=== PATIENT | female | born 1960 | race Caucasian/White ===

== ENCOUNTER → 2016-11-17 | Outpatient (CLI) | payer BC ==
--- NOTE | 2016-11-17 13:18 | US ---
EXAMINATION TYPE: US pelvic complete DATE OF EXAM: 11/17/2016 COMPARISON: NONE CLINICAL HISTORY: R19.00 PELVIC MASS. Left sided fullness TECHNIQUE: TA Date of LMP: 10 years ago EXAM MEASUREMENTS: Uterus: 5.9 x 3.9 x 2.8cm Endometrial Stripe: 0.3cm Right Ovary: 2.6 x 1.2 x 1.3cm Left Ovary: 1.6 x 1.2 x 0.9cm 1. Uterus: Anteverted wnl 2. Endometrium: wnl 3. Right Ovary: wnl 4. Left Ovary: wnl 5. Bilateral Adnexa: left adnexa has peristalsing bowel noted more so then the right 6. Posterior cul-de-sac: wnl IMPRESSION: 1. No suspicious pelvic abnormality by ultrasound
--- NOTE | 2016-11-17 17:46 | WWHP ---
CHIEF COMPLAINT: The patient is here for her routine gynecologic exam and mammogram. HPI: This is a 56-year-old G1, P1 with an LMP of 2008. The patient is without gynecologic complaints and denies any postmenopausal bleeding. Her last pelvic exam was about 2009 and her last mammogram was in 2012. Past medical history is unremarkable. MEDICATIONS: Multivitamin daily, vitamin D supplement daily. ALLERGIES: No known drug allergies. PAST SURGICAL HISTORY: Bone spurs removed when she was in the fifth grade, colonoscopy 2008. PAST OB HISTORY: One vaginal delivery. 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 She was told she had HPV and denies any other STDs in the past. SOCIAL HISTORY: She denies tobacco and drug use. She has about 2 alcoholic drinks per week. She has been since 1998 and this was her second marriage. 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 FAMILY HISTORY: Mother had bladder cancer. Maternal aunt and maternal uncle had breast cancer. Father had COPD and [place]. REVIEW OF SYSTEMS: She has lost about 10 pounds over the last year with diet and exercise. She denies respiratory, cardiac, or GI problems. : She has had some occasional incontinence and does wear protection. PHYSICAL EXAM: Blood pressure 129/75. Height 5 feet 5 inches. Weight 137 pounds. Temperature 96.6, pulse 72. This a well-developed, malnourished white female who is alert and oriented x3 in no acute distress. HEENT is within normal limits. NECK: Supple without mass or thyromegaly. CHEST AND LUNGS: Clear to auscultation. HEART: Regular rate and rhythm. Breasts are without mass or discharge. Axillary exam is negative for adenopathy. BACK: Negative for CVA tenderness. ABDOMEN: Soft, nontender, without palpable masses. PELVIC EXAM: External genitalia reveals mild to moderate atrophy without lesions. Cervix and vagina reveal mild atrophy without lesions and there is no evidence of prolapse. The uterus is midposition, nongravid size and nontender. There is palpable mass at the lateral aspect of the left adnexa which measures approximately 2 cm and is nontender. This initially felt like colonic stool. There are no other palpable adnexal masses or tenderness. Rectovaginal exam is negative for rectal mass and the lateral left adnexal masses again was palpated and this could not be confirmed to be stool with the rectal exam. There is no tenderness and this was negative for occult blood. EXTREMITIES: Nontender. IMPRESSION: A 56-year-old menopausal female with palpable lateral adnexal masses on the left side. Differential diagnosis will include colonic stool, but also could possibly be a palpable ovary in menopause. PLAN: 1. Pap smear was performed. 2. Self breast examination was discussed. 3. Mammogram will be done today. 4. Pelvic ultrasound will be scheduled to further evaluate the left adnexal mass. 5. Osteoporosis prevention was discussed. 6. We will plan doing bone density testing at age 58. 7. She will also return in one year.
--- NOTE | 2016-11-19 10:54 | MM ---
Reason for exam: screening (asymptomatic). Last mammogram was performed 4 years and 3 months ago. History: Patient is postmenopausal and had first child at age 31. Family history of breast cancer in aunt at age 60. Physical Findings: A clinical breast exam by your physician is recommended on an annual basis and results should be correlated with mammographic findings. MG Screening Mammo w CAD Bilateral CC and MLO view(s) were taken. Prior study comparison: August 23, 2012, bilateral digital screening mammo w/CAD. The breast tissue is heterogeneously dense. This may lower the sensitivity of mammography. No significant changes when compared with prior studies. ASSESSMENT: Benign, BI-RAD 2 RECOMMENDATION: Routine screening mammogram of both breasts in 1 year.
== END ==
LOC: WWCWWP 07:52
PROVIDERS: ATTEND Obstetrics & Gynecology
DX: Z12.31 Encounter for screening mammogram for malignant neoplasm of breast (principal); R19.00 Intra-abdominal and pelvic swelling, mass and lump, unspecified site
CPT/HCPCS: 76856; G0202

== ENCOUNTER → 2018-02-01 | Outpatient (CLI) | payer BC ==
[2018-02-01 14:31] VITALS: BP 144/84; PULSE 80; RESP 18; TEMP 98.3; BMI 22.9
--- NOTE | 2018-02-01 15:02 | P.HPOB ---
History of Present Illness H&P Date: 02/01/18 Chief Complaint: The patient is here for her routine gynecologic exam and mammogram. This is a 58-year-old with an LMP of 2008. The patient is without gynecologic complaints and denies any postmenopausal bleeding. Review of Systems The patient's weight has been stable over the last year. She denies cardiac or G.I. problems. Respiratory: she is getting over cold. 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 She has no other history of STDs in the past. History of Any Multi-Drug Resistant Organisms: None Reported Additional Past Surgical History / Comment(s): bone spurs removed, feet. Colonoscopy 2008. Past Anesthesia/Blood Transfusion Reactions: No Reported Reaction Past Psychological History: No Psychological Hx Reported Smoking Status: Former smoker Past Alcohol Use History: Occasional (3 per week) Past Drug Use History: None Reported Additional History: She has been since 1998 and this is her 2nd marriage. 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 - Past Family History Mother Family Medical History: Cancer (bladder), Thyroid Disorder Additional Family Medical History / Comment(s): Maternal aunt and maternal uncle had breast cancer. Father Family Medical History: COPD, Hypertension, Myocardial Infarction ([place]) Additional Family Medical History / Comment(s): arthritis, colostomy Medications and Allergies Home Medications Medication Instructions Recorded Confirmed Type Cholecalciferol [Vitamin D3] 1,000 unit PO DAILY 02/01/18 02/01/18 History Multivitamins, Thera [Multivitamin 1 tab PO DAILY 02/01/18 02/01/18 History (formulary)] Allergies Allergy/AdvReac Type Severity Reaction Status Date / Time No Known Allergies Allergy Verified 02/01/18 14:35 Exam Vital Signs Temp Pulse Resp BP 02/01/18 14:02 98.3 F 80 18 144/84 Intake and Output 01/31/18 02/01/18 02/01/18 22:59 06:59 14:59 Other: Weight 62.596 kg Height 5'5", BMI 23.0. This is a well-developed well-nourished white female who is alert and oriented times 3 in no acute distress. HEENT: Within normal limits. NECK: Supple without mass or thyromegaly. CHEST AND LUNGS: Clear to auscultation. HEART: Regular rate and rhythm. BREASTS: Are without mass or discharge. AXILLARY EXAM: Negative for adenopathy. BACK: Negative for CVA tenderness. ABDOMEN: Soft, nontender, without palpable masses. PELVIC EXAM: Normal external genitalia with mild atrophy. Cervix and vagina appear normal mild atrophy. There is no unusual discharge. There is no evidence of prolapse. The uterus is midposition, nongravid size and nontender. There are no palpable adnexal masses or tenderness. RECTAL EXAM: rectovaginal exam is negative for mass or tenderness and is negative for occult blood. EXTREMITIES: Nontender. IMPRESSION: 1. 58-year-old menopausal female with normal gynecologic exam. 2. Mildly elevated blood pressure. PLAN: 1. Pap smear was deferred since she had a normal one last year. 2. Self breast awareness was discussed. 3. Screening mammogram will be done today. 4. Osteoporosis prevention was discussed. Bone density screening will be done today. 5. I recommended that she check her own blood pressure at home on a regular basis. She will follow-up with her primary care physician for blood pressure elevations. 6. She will return in one year.
--- NOTE | 2018-02-02 09:04 | BD ---
EXAMINATION TYPE: Axial Bone Density DATE OF EXAM: 02/01/2018 COMPARISON: NONE CLINICAL HISTORY: Postmenopausal female Height: 64.5 IN Weight: 135 LBS FRAX RISK QUESTIONS: History of Fracture in Adulthood: LEFT WRIST AGE 52 RISK FACTORS HISTORY OF: History of Wrist Fracture: RT WRIST FX AGE 18; LT WRIST FX AGE 52 Active: YES Postmenopausal woman: AGE 52 MEDICATIONS: Additional Medications: VIT D, MULTI VIT, EXAM MEASUREMENTS: Bone mineral densitometry was performed using the [employer] System. Bone mineral density as measured about the Lumbar spine is: ----- L1-L4(G/cm2): 1.161 T Score Values are as follows: ----- L2: -0.3 ----- L3: -0.5 ----- L4: 0.7 ----- L1-L4: -0.2 Bone mineral density BASELINE Bone mineral density about the R hip (g/cm2): 0.940 Bone mineral density about the L hip (g/cm2): 0.977 T Score values are as follows: -----R Neck: -0.7 -----L Neck: -0.4 -----R Total: 0.1 -----L Total: 0.6 Bone mineral density BASELINE IMPRESSION: Normal (Values between +1 and -1 indicate normal bone mass). Consider repeating this study in 5 year s or sooner if there is some new clinical indication. NOTE: T-SCORE=SD OF THE YOUNG ADULT MEAN.
--- NOTE | 2018-02-07 13:36 | MM ---
Reason for exam: screening (asymptomatic). Last mammogram was performed 1 year and 2 months ago. History: Patient is postmenopausal and had first child at age 31. Family history of breast cancer in aunt at age 60. Physical Findings: A clinical breast exam by your physician is recommended on an annual basis and results should be correlated with mammographic findings. MG Screening Mammo w CAD Bilateral CC and MLO view(s) were taken. Prior study comparison: November 17, 2016, bilateral MG screening mammo w CAD. August 23, 2012, bilateral digital screening mammo w/CAD. The breast tissue is heterogeneously dense. This may lower the sensitivity of mammography. No significant changes when compared with prior studies. ASSESSMENT: Benign, BI-RAD 2 RECOMMENDATION: Routine screening mammogram of both breasts in 1 year.
--- NOTE | 2018-02-09 15:27 | P.PN ---
Progress Note - Text Progress Note Date: 02/09/18 OUTPATIENT FOLLOW-UP NOTE TEST(S)/RESULTS: bone density test from 02/01/2018 was normal METHOD OF NOTIFICATION: a message was left on the patient's voicemail with the normal bone density results. PATIENT COMMENTS: [] DIAGNOSIS: normal bone density screening. DISCUSSION: [] PLAN: repeat in 5 years.
== END | disposition home or self-care (01) ==
LOC: WWCWWP 13:58
PROVIDERS: ATTEND Obstetrics & Gynecology
DX: Z12.31 Encounter for screening mammogram for malignant neoplasm of breast (principal); Z78.0 Asymptomatic menopausal state
CPT/HCPCS: 77067; 77080

== ENCOUNTER → 2019-12-19 | Outpatient (CLI) | payer BC ==
[2019-12-19 14:16] VITALS: BP 100/65; PULSE 79; RESP 20; TEMP 98
--- NOTE | 2019-12-19 15:02 | P.HPOB ---
History of Present Illness H&P Date: 12/19/19 Chief Complaint: The patient is here for her routine gynecologic exam and ma mmogram. This is a 59-year-old with an LMP of 2008. The patient is without gynecologic complaints and denies any postmenopausal bleeding. Review of Systems Her weight has been stable. She denies respiratory or cardiac problems. GI: She has been having some digestive tract issues including loose stools and feelings of hunger, but not wanting to eat. She denies abdominal bloating or lower abdominal discomfort. She is scheduled for colonoscopy next week. 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 She has no other history of STDs in the past. History of Any Multi-Drug Resistant Organisms: None Reported Additional Past Surgical History / Comment(s): bone spurs removed, feet. Colonoscopy 2008. Past Anesthesia/Blood Transfusion Reactions: No Reported Reaction Past Psychological History: Anxiety Smoking Status: Former smoker Past Alcohol Use History: Occasional (4 per week) Past Drug Use History: None Reported Additional History: She is been since 1998 and this is her second marriage. 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 - Past Family History Mother Family Medical History: Cancer, Thyroid Disorder Additional Family Medical History / Comment(s): from Bladder cancer. Maternal aunt and maternal uncle had breast cancer. Father Family Medical History: COPD, Hypertension, Myocardial Infarction ([place]) Additional Family Medical History / Comment(s): arthritis, colostomy Medications and Allergies Home Medications Medication Instructions Recorded Confirmed Type Cholecalciferol [Vitamin D3] 1,000 unit PO DAILY 02/01/18 12/19/19 History Multivitamins, Thera [Multivitamin 1 tab PO DAILY 02/01/18 12/19/19 History (formulary)] PARoxetine [Paxil] 10 mg PO DAILY 12/19/19 12/19/19 History Allergies Allergy/AdvReac Type Severity Reaction Status Date / Time No Known Allergies Allergy Verified 12/19/19 14:09 Exam Vital Signs Temp Pulse Resp BP Pulse Ox 12/19/19 14:10 98.0 F 79 20 100/65 97 Intake and Output 12/18/19 12/19/19 12/19/19 22:59 06:59 14:59 Other: Weight 63.503 kg Height 5 feet 4 inches, weight 140 pounds, BMI 24.0. This is a well-developed well-nourished white female who is alert and oriented times 3 in no acute distress. HEENT: Within normal limits. NECK: Supple without mass or thyromegaly. CHEST AND LUNGS: Clear to auscultation. HEART: Regular rate and rhythm. BREASTS: Are without mass or discharge. AXILLARY EXAM: Negative for adenopathy. BACK: Negative for CVA tenderness. ABDOMEN: Soft, nontender, without palpable masses. PELVIC EXAM: Normal external genitalia with mild atrophy. Cervix and vagina appear normal is mild atrophy. The cervix is slightly stenotic. There is no unusual discharge. There is no evidence of prolapse. The uterus is midposition, nongravid size and nontender. There are no palpable adnexal masses or tenderness. RECTAL EXAM: Rectovaginal exam is negative for mass or tenderness and is negative for occult blood. EXTREMITIES: Nontender. IMPRESSION: 1. 59-year-old menopausal female with normal gynecologic exam. PLAN: 1. Pap smear was performed. 2. Self breast awareness was discussed with the patient. 3. Screening mammogram will be done today. 4. Osteoporosis prevention was discussed. Her last bone density test was done in 2018 and was normal. We will plan on repeating this in approximately in 2022. 5. She states she has a colonoscopy coming up in the next week and Dr. Paulson will be doing this. 6. She was advised to return in one year for her annual well woman exam.
--- NOTE | 2019-12-26 16:12 | P.PN ---
Progress Note - Text Progress Note Date: 12/26/19 OUTPATIENT FOLLOW-UP NOTE TEST(S)/RESULTS: test results from 12/19/2019 include negative Pap smear and benign mammogram. METHOD OF NOTIFICATION: the patient was notified by phone. PATIENT COMMENTS: the patient is happy to hear these results. DIAGNOSIS: negative Pap smear and benign mammogram. DISCUSSION: She is scheduled for colonoscopy tomorrow. PLAN: the patient is to return in one year for her annual well woman exam.
== END | disposition home or self-care (01) ==
LOC: WWCWWP 14:04
PROVIDERS: ATTEND Obstetrics & Gynecology
DX: Z53.9 Procedure and treatment not carried out, unspecified reason (principal)

== ENCOUNTER → 2019-12-19 | Outpatient (CLI) | payer BC ==
--- NOTE | 2019-12-20 11:06 | MM ---
Reason for exam: screening (asymptomatic). Last mammogram was performed 1 year and 11 months ago. History: Patient is postmenopausal and had first child at age 31. Family history of breast cancer in aunt at age 60. Physical Findings: A clinical breast exam by your physician is recommended on an annual basis and results should be correlated with mammographic findings. MG Screening Mammo w CAD Bilateral CC and MLO view(s) were taken. Prior study comparison: February 01, 2018, bilateral MG screening mammo w CAD. November 17, 2016, bilateral MG screening mammo w CAD. The breast tissue is heterogeneously dense. This may lower the sensitivity of mammography. No significant changes when compared with prior studies. ASSESSMENT: Benign, BI-RAD 2 RECOMMENDATION: Routine screening mammogram of both breasts in 1 year.
== END | disposition home or self-care (01) ==
LOC: RADMAMWWP 14:54
PROVIDERS: ATTEND Obstetrics & Gynecology
DX: Z12.31 Encounter for screening mammogram for malignant neoplasm of breast (principal)
CPT/HCPCS: 77067

== ENCOUNTER → 2020-12-31 | Outpatient (CLI) | payer BC ==
[2020-12-31 14:18] VITALS: BP 111/74; PULSE 79; RESP 18; TEMP 98
--- NOTE | 2020-12-31 14:55 | P.HPOB ---
History of Present Illness H&P Date: 12/31/20 Chief Complaint: The patient is here for her routine gynecologic exam and ma mmogram. This is a 60-year-old with an LMP of 2008. Patient is without gynecologic complaints and denies any postmenopausal bleeding. Review of Systems The patient's weight has been stable over the last year. She denies respiratory, cardiac, or G.I. problems. Past Medical History Past Medical History: No Reported History Additional Past Medical History / Comment(s): Hiatal hernia. 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 She has no other history of STDs in the past. History of Any Multi-Drug Resistant Organisms: None Reported Additional Past Surgical History / Comment(s): bone spurs removed, feet. Colonoscopy with EGD 2019. Past Anesthesia/Blood Transfusion Reactions: No Reported Reaction Past Psychological History: No Psychological Hx Reported Smoking Status: Former smoker Past Alcohol Use History: Daily (2 per day) Past Drug Use History: None Reported Additional History: She has been since 1998 and this is her second marriage. 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 - Past Family History Mother Family Medical History: Cancer, Thyroid Disorder Additional Family Medical History / Comment(s): from Bladder cancer. Maternal aunt and maternal uncle had breast cancer. Father Family Medical History: COPD, Hypertension, Myocardial Infarction ([place]) Additional Family Medical History / Comment(s): arthritis, colostomy Medications and Allergies Home Medications Medication Instructions Recorded Confirmed Type Cholecalciferol [Vitamin D3] 1,000 unit PO DAILY 02/01/18 12/31/20 History Multivitamins, Thera [Multivitamin 1 tab PO DAILY 02/01/18 12/31/20 History (formulary)] Allergies Allergy/AdvReac Type Severity Reaction Status Date / Time No Known Allergies Allergy Verified 12/31/20 14:09 Exam Vital Signs Temp Pulse Resp BP Pulse Ox 12/31/20 14:11 98.0 F 79 18 111/74 100 Intake and Output 12/30/20 12/31/20 12/31/20 22:59 06:59 14:59 Other: Weight 63.503 kg Height 5 feet 5 inches, weight 140 pounds, BMI 23.3. This is a well-developed well-nourished white female who is alert and oriented times 3 in no acute distress. HEENT: Within normal limits. NECK: Supple without mass or thyromegaly. CHEST AND LUNGS: Clear to auscultation. HEART: Regular rate and rhythm. BREASTS: Are without mass or discharge. AXILLARY EXAM: Negative for adenopathy. BACK: Negative for CVA tenderness. ABDOMEN: Soft, nontender, without palpable masses. PELVIC EXAM: Normal external genitalia with mild atrophy. Cervix and vagina appear normal mild atrophy. There is no unusual discharge. There is no evidence of prolapse. The uterus is midposition, nongravid size and nontender. There are no palpable adnexal masses or tenderness. RECTAL EXAM: Rectovaginal exam is negative for mass or tenderness and is negative for occult blood. EXTREMITIES: Nontender. IMPRESSION: 1. 60-year-old menopausal female with normal gynecologic exam. PLAN: 1. Pap smear was deferred since she had a normal one on 12/19/2019. 2. Self breast awareness was discussed with the patient. 3. Screening mammogram will be done today. 4. Osteoporosis prevention was discussed. I have stressed the importance of adequate calcium, vitamin D and regular exercise. Recommended amounts of calcium and vitamin D were also discussed. We will plan on repeating bone density testing in approximately 2022. 5. She was advised to return in one year for her annual well woman exam.
--- NOTE | 2021-01-02 09:18 | MM ---
Reason for exam: screening (asymptomatic). Last mammogram was performed 1 year ago. History: Patient is postmenopausal and had first child at age 31. Family history of breast cancer in aunt at age 60. Physical Findings: A clinical breast exam by your physician is recommended on an annual basis and results should be correlated with mammographic findings. MG Screening Mammo w CAD Bilateral CC and MLO view(s) were taken. Prior study comparison: December 19, 2019, bilateral MG screening mammo w CAD. February 01, 2018, bilateral MG screening mammo w CAD. The breast tissue is heterogeneously dense. This may lower the sensitivity of mammography. ASSESSMENT: Negative, BI-RAD 1 RECOMMENDATION: Routine screening mammogram of both breasts in 1 year.
== END ==
LOC: WWCWWP 14:01
PROVIDERS: ATTEND Obstetrics & Gynecology
DX: Z12.31 Encounter for screening mammogram for malignant neoplasm of breast (principal); Z01.419 Encounter for gynecological examination (general) (routine) without abnormal findings; Z87.891 Personal history of nicotine dependence; Z80.3 Family history of malignant neoplasm of breast
CPT/HCPCS: 77067

== ENCOUNTER → 2023-04-07 | Outpatient (CLI) | payer MEDICARE, BC ==
[2023-04-07 09:31] VITALS: BP 111/68; PULSE 77; RESP 16; TEMP 98
--- NOTE | 2023-04-07 10:07 | P.HPOB ---
History of Present Illness H&P Date: 04/07/23 Chief Complaint: The patient is here for her routine gynecologic exam and ma mmogram. This is a 63-year-old with an LMP of 2008. The patient has been having some issues with urinary incontinence. She states she mainly notices it with walking and has to wear a pad when she walks for exercise. She does not have the same issue with fitness training or other activities, but she still will wear a pad she denies any urinary tract infection symptoms such as dysuria or u rinary frequency or urgency. She denies any significant problems with simple coughing or sneezing. She typically gets up 1 or 2 times a night to urinate. She denies urge incontinence and does feel like she empties her bladder fairly well. She is otherwise without complaints. Review of Systems The patient has gained 7 pounds over the last year. She denies respiratory, cardiac, or G.I. problems. : Some urinary incontinence with walking as in the HPI. Past Medical History Past Medical History: No Reported History, Cancer Additional Past Medical History / Comment(s): Hiatal hernia. Basal cell skin cancer removed. 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 She has no other history of STDs in the past. History of Any Multi-Drug Resistant Organisms: None Reported Additional Past Surgical History / Comment(s): bone spurs removed, feet. Colonoscopy with EGD 2019. Past Anesthesia/Blood Transfusion Reactions: No Reported Reaction Past Psychological History: No Psychological Hx Reported Smoking Status: Former smoker Past Alcohol Use History: Occasional (2 per week) Past Drug Use History: None Reported Additional History: She has been since 1998 and this is her second marriage. 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 - Past Family History Mother Family Medical History: Cancer, Thyroid Disorder Additional Family Medical History / Comment(s): from Bladder cancer. Maternal aunt and maternal uncle had breast cancer. Father Family Medical History: COPD, Hypertension, Myocardial Infarction ([place]) Additional Family Medical History / Comment(s): arthritis, colostomy. . Medications and Allergies Home Medications Medication Instructions Recorded Confirmed Type Cholecalciferol [Vitamin D3] 1,000 unit PO DAILY 02/01/18 02/10/22 History Multivitamins, Thera [Multivitamin 1 tab PO DAILY 02/01/18 02/10/22 History (formulary)] Calcium Carbonate [Tums] 500 mg PO BID 02/10/22 02/10/22 History Collagen/Biotin/Ascorbic Acid 1 cap PO DAILY 04/07/23 04/07/23 History [Collagen 1500 Plus C Capsule] Krill/[place]-3/Dha/Epa/Lipids 1 cap PO DAILY 04/07/23 04/07/23 History [Krill Oil 350 mg Softgel] Allergies Allergy/AdvReac Type Severity Reaction Status Date / Time No Known Allergies Allergy Verified 04/07/23 09:21 Exam Vital Signs Temp Pulse Resp BP Pulse Ox 04/07/23 09:22 98.0 F 77 16 111/68 97 Intake and Output 04/06/23 04/07/23 04/07/23 22:59 06:59 14:59 Other: Weight 65.317 kg Height 5 feet 5 inches, weight 144 pounds, BMI 24.0. This is a well-developed well-nourished white female who is alert and oriented times 3 in no acute distress. HEENT: Within normal limits. NECK: Supple without mass or thyromegaly. CHEST AND LUNGS: Clear to auscultation. HEART: Regular rate and rhythm. BREASTS: Are without mass or discharge. AXILLARY EXAM: Negative for adenopathy. BACK: Negative for CVA tenderness. ABDOMEN: Soft, nontender, without palpable masses. PELVIC EXAM: Normal external genitalia with mild to moderate atrophy. Cervix and vagina appear normal with mild to moderate atrophy. There is no unusual discharge. There is no evidence of prolapse. There is mild urethral mobility with cough and Valsalva and a very small amount of urinary leakage was demonstrated. The uterus is midposition, nongravid size and nontender. There are no palpable adnexal masses or tenderness. RECTAL EXAM: Rectovaginal exam is negative for mass or tenderness and is negative for occult blood. EXTREMITIES: Nontender. IMPRESSION: 1. 63-year-old menopausal female with normal gynecologic exam. 2. Mild urinary incontinence with walking. Possibly some type of mixed urinary incontinence with mild urethral mobility on exam today. PLAN: 1. Pap smear was deferred since she had a negative Pap smear cotest on 02/10/2022. 2. Self breast awareness was discussed with the patient. We have also discussed symptoms associated with inflammatory breast cancer. 3. Screening mammogram will be done today. 4. Osteoporosis prevention was discussed. I have stressed the importance of adequate calcium, vitamin D and regular exercise. Recommended amounts of calcium and vitamin D were also discussed. It has been about 5 years since her last normal bone density test done in 2018. I recommended to repeat the bone density test and the order slip was given to the patient for this. 5. We have had a long discussion regarding urinary incontinence as well as the different types of urinary incontinence. I recommended regular Kegal exercises and timed voids. Instructions on these were discussed with the patient. She will try to do at least 3 sets of 20 Kegal exercises daily. If her symptoms are not improving or if they are worsening, we can consider referral to a gynecolog ic urologist for further evaluation. 6. She was advised to return in one year for her annual well woman exam.
--- NOTE | 2023-04-08 12:23 | MM ---
Reason for Exam: Screening (asymptomatic). Last mammogram was performed 1 year(s) and 2 month(s) ago. Patient History: Menarche at age 11. First Full-Term at age 31. Late child-bearing (after 30). Postmenopausal. Maternal aunt had breast cancer, age 60. Maternal uncle had breast cancer, age 55. Risk Values: Macey 5 year model risk: 2.3%. NCI Lifetime model risk: 8.6%. Prior Study Comparison: 12/19/2019 Bilateral Screening Mammogram, [facility]. 12/31/2020 Bilateral Screening Mammogram, [facility]. 02/10/2022 Bilateral MG screening mammo w CAD, [facility]. Tissue Density: The breast tissue is heterogeneously dense. This may lower the sensitivity of mammography. Findings: Analyzed By CAD. There is no suspicious group of microcalcifications or new suspicious mass. Overall Assessment: Negative, BI-RAD 1 Management: Screening Mammogram of both breasts in [address] [facility] will attempt to contact patient to return for supplemental views and ultrasound if indicated. Patient should continue monthly self-breast exams. A clinical breast exam by your physician is recommended on an annual basis. This exam should not preclude additional follow-up of suspicious palpable abnormalities. Note on Macey scores and lifetime risk: 1. A Macey score greater than 3% is considered moderate risk. If this is the case, consider specialist referral to assess eligibility for a risk reducing agent. 2. If overall lifetime risk for the development of breast cancer is 20% or higher, the patient may qualify for future screening with alternating mammogram and breast MRI. Electronically signed and approved by: Damian Luciano DO
== END ==
LOC: WWCWWP 09:15
PROVIDERS: ATTEND Obstetrics & Gynecology
DX: Z12.31 Encounter for screening mammogram for malignant neoplasm of breast (principal); R32 Unspecified urinary incontinence; Z78.0 Asymptomatic menopausal state; Z80.3 Family history of malignant neoplasm of breast; Z85.828 Personal history of other malignant neoplasm of skin; Z87.891 Personal history of nicotine dependence
CPT/HCPCS: 77067

== ENCOUNTER → 2024-05-09 | Outpatient (CLI) | payer MEDICARE, BC ==
[2024-05-09 12:48] VITALS: BP 137/83; PULSE 88; RESP 17; TEMP 98.4
--- NOTE | 2024-05-09 13:25 | P.HPOB ---
History of Present Illness H&P Date: 05/09/24 Chief Complaint: The patient is here for her routine gynecologic exam and ma mmogram. This is a 64-year-old G1, P1 with an LMP of 2008. The patient is without gynecologic complaints. Review of Systems Her weight has been stable. Respiratory: She is getting over respiratory symptoms and is being treated with an antibiotic. She denies cardiac or GI problems. Past Medical History Past Medical History: Cancer Additional Past Medical History / Comment(s): Hiatal hernia. Basal cell skin cancer removed. 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 She has no other history of STDs in the past. History of Any Multi-Drug Resistant Organisms: None Reported Additional Past Surgical History / Comment(s): bone spurs removed, feet. Colonoscopy with EGD 2019. Past Anesthesia/Blood Transfusion Reactions: No Reported Reaction Past Psychological History: No Psychological Hx Reported Smoking Status: Former smoker Past Alcohol Use History: Occasional (3 drinks per week) Past Drug Use History: None Reported Additional History: She has been since 1998 and this is her second marriage. 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 - Past Family History Mother Family Medical History: Cancer, Thyroid Disorder Additional Family Medical History / Comment(s): from Bladder cancer. Maternal aunt and maternal uncle had breast cancer. Father Family Medical History: COPD, Hypertension, Myocardial Infarction ([place]) Additional Family Medical History / Comment(s): arthritis, colostomy. . Medications and Allergies Home Medications Medication Instructions Recorded Confirmed Type Cholecalciferol [Vitamin D3] 1,000 unit PO DAILY 02/01/18 05/09/24 History Multivitamins, Thera [Multivitamin 1 tab PO DAILY 02/01/18 05/09/24 History (formulary)] Calcium Carbonate [Tums] 500 mg PO BID 02/10/22 05/09/24 History Collagen/Biotin/Ascorbic Acid 1 cap PO DAILY 04/07/23 05/09/24 History [Collagen 1500 Plus C Capsule] Krill/[place]-3/Dha/Epa/Lipids 1 cap PO DAILY 04/07/23 05/09/24 History [Krill Oil 350 mg Softgel] nitrofurantoin macrocrystaL 25 mg PO DAILY 05/09/24 05/09/24 History [Macrodantin] Allergies Allergy/AdvReac Type Severity Reaction Status Date / Time No Known Allergies Allergy Verified 05/09/24 12:45 Exam Vital Signs Temp Pulse Resp BP Pulse Ox 05/09/24 12:46 98.4 F 88 17 137/83 98 Intake and Output 05/08/24 05/09/24 05/09/24 22:59 06:59 14:59 Other: Weight 64.864 kg Height 5 feet 4 inches, weight 143 pounds, BMI 24.5. This is a well-developed well-nourished white female who is alert and oriented times 3 in no acute distress. HEENT: Within normal limits. NECK: Supple without mass or thyromegaly. CHEST AND LUNGS: Clear to auscultation. HEART: Regular rate and rhythm. BREASTS: Are without mass or discharge. AXILLARY EXAM: Negative for adenopathy. BACK: Negative for CVA tenderness. ABDOMEN: Soft, nontender, without palpable masses. PELVIC EXAM: Normal external genitalia with mild atrophy. Cervix and vagina appear normal with mild atrophy. There is no unusual discharge. There is no evidence of prolapse. The uterus is midposition, nongravid size and nontender. There are no palpable adnexal masses or tenderness. RECTAL EXAM: Rectovaginal exam is negative for mass or tenderness and is negative for occult blood. EXTREMITIES: Nontender. IMPRESSION: 1. 64-year-old menopausal female with normal gynecologic exam. 2. History of cryotherapy of the cervix in her 40s. PLAN: 1. Cervical screening will be continued for approximately 10 more years because of her history of cryotherapy of the cervix with date uncertain. Pap smear was deferred since she had a negative Pap smear cotest on 02/10/2022. 2. Self breast awareness was discussed with the patient. We have also discussed symptoms associated with inflammatory breast cancer. 3. Screening mammogram was done today. 4. Bone density testing was last done in 2018 and was normal. Have recommended repeating the bone density test and the order slip was given to the patient for this. 5. Osteoporosis prevention was discussed. I have stressed the importance of adequate calcium, vitamin D and regular exercise. Recommended amounts of calcium and vitamin D were also discussed.
--- NOTE | 2024-05-10 08:45 | MM ---
Reason for Exam: Screening (asymptomatic). Last mammogram was performed 1 year(s) and 1 month(s) ago. Patient History: Menarche at age 11. First Full-Term at age 31. Late child-bearing (after 30). Postmenopausal. Maternal aunt had breast cancer, age 60. Maternal uncle had breast cancer, age 55. Risk Values: Macey 5 year model risk: 2.3%. NCI Lifetime model risk: 8.2%. Prior Study Comparison: 12/31/2020 Bilateral Screening Mammogram, [facility]. 02/10/2022 Bilateral MG screening mammo w CAD, [facility]. 04/07/2023 Bilateral MG screening mammo w CAD, [facility]. Tissue Density: The breasts are heterogeneously dense, which may obscure small masses. Findings: Analyzed By CAD. Right breast: There is no suspicious group of microcalcifications or new suspicious mass. Left breast: There is no suspicious group of microcalcifications or new suspicious mass. Overall Assessment: Negative, BI-RAD 1 Management: Screening Mammogram of both breasts in [address] [facility] will attempt to contact patient to return for supplemental views and ultrasound if indicated. Patient should continue monthly self-breast exams. A clinical breast exam by your physician is recommended on an annual basis. This exam should not preclude additional follow-up of suspicious palpable abnormalities. Note on Macey scores and lifetime risk: 1. A Macey score greater than 3% is considered moderate risk. If this is the case, consider specialist referral to assess eligibility for a risk reducing agent. 2. If overall lifetime risk for the development of breast cancer is 20% or higher, the patient may qualify for future screening with alternating mammogram and breast MRI. [facility], , 05/10/2024 8:42 AM. Electronically signed and approved by: Damian Luciano DO
== END | disposition home or self-care (01) ==
LOC: RADMAMWWP 12:12
PROVIDERS: ATTEND Obstetrics & Gynecology
DX: Z12.31 Encounter for screening mammogram for malignant neoplasm of breast (principal); R92.333 Mammographic heterogeneous density, bilateral breasts; Z78.0 Asymptomatic menopausal state; Z80.3 Family history of malignant neoplasm of breast; Z82.61 Family history of arthritis; Z83.49 Family history of other endocrine, nutritional and metabolic diseases; Z85.828 Personal history of other malignant neoplasm of skin
CPT/HCPCS: 77067

== ENCOUNTER → 2024-05-16 | Outpatient (CLI) | payer MEDICARE, BC ==
--- NOTE | 2024-05-16 17:37 | BD ---
EXAMINATION TYPE: Axial Bone Density DATE OF EXAM: 05/16/2024 CLINICAL HISTORY: 64 years old Female. ICD-10 CODE: Z780 POSTMENOPAUSAL STATUS , Additional History: Height: 64.5 Weight: 142.0 FRAX RISK QUESTIONS: Alcohol (3 or more units per day): no Family History (Parent hip fracture): no Glucocorticoids (More than 3mos): no (Ex: prednisone, prednisolone, methylprednisolone, dexamethasone, and hydrocortisone). History of Fracture in Adulthood: yes Secondary Osteoporosis: 1. Type 1 Diabetes: no 2. Hyperthyroidism: no 3. Menopause before 45: no 4. Malnutrition: no 5. Chronic liver disease: no Rheumatoid Arthritis: no Current Tobacco Use: no RISK FACTORS HISTORY OF: History of Wrist Fracture: right wrist When: 12 years ago Surgery to Spine/Hip(right/left)/Wrist (right/left): no EXAM MEASUREMENTS: Bone mineral densitometry was performed using the [employer] System. Bone mineral density as measured about the Lumbar spine is: ----- L1-L4(G/cm2): 1.250 T Score Values are as follows: ----- L1: -0.4 ----- L2: 0.4 ----- L3: 0.9 ----- L4: 1.1 ----- L1-L4: 0.6 Z Score Values are as follows: ----- L1: 1.2 ----- L2: 2.0 ----- L3: 2.6 ----- L4: 2.7 ----- L1-L4: 2.2 Bone mineral density has: increased 7.7 % since study of:02.01.2018 Bone mineral density about the R hip (g/cm2): 1.006 Bone mineral density about the L hip (g/cm2): 1.069 T Score values are as follows: -----R Neck: -0.8 -----L Neck: -0.5 -----R Total: 0.0 -----L Total: 0.5 Z Score values are as follows: -----R Neck: 1.1 -----L Neck: 0.7 -----R Total: 1.3 -----L Total: 1.8 Bone mineral density has: decreased -1.6 % since study of: 02.01.2018 FRAX%s: The graph provided illustrates a 12.9% chance for a major osteoporotic fx and a 0.9% chance f or the hips probability for fx in 10 years time. IMPRESSION: Normal (Values between +1 and -1 indicate normal bone mass). Consider repeating this study in 5 year s or sooner if there is some new clinical indication. NOTE: T-SCORE=SD OF THE YOUNG ADULT MEAN. [facility], , 05/16/2024 5:35 PM
== END | disposition home or self-care (01) ==
LOC: RADBDWWP 10:27
PROVIDERS: ATTEND Obstetrics & Gynecology
DX: Z78.0 Asymptomatic menopausal state (principal)
CPT/HCPCS: 77080